=== PATIENT | female | born 2000 | race Two or more races ===

== ENCOUNTER 2021-07-15 17:36 | Emergency (ER) | payer MEDICAID, OTHER ==
[~2021-07-15] VITALS: Ht 167.6 cm; Wt 94.8 kg
[2021-07-15 17:37] VITALS: BP 145/93
== END 2021-07-15 19:40 | disposition home or self-care (01) ==
LOC: ER 17:36
DX: R07.89 Other chest pain (principal); M79.10 Myalgia, unspecified site; T14.8XXA Other injury of unspecified body region, initial encounter; V43.52XA Car driver injured in collision with other type car in traffic accident, initial encounter; Y93.89 Activity, other specified; Y92.410 Unspecified street and highway as the place of occurrence of the external cause; Y99.8 Other external cause status
CPT/HCPCS: 71046; 73130